=== PATIENT | male | born 1975 | race Asian ===

== ENCOUNTER 2024-02-04 19:03 | Emergency (ER) | payer OTHER ==
[~2024-02-04] VITALS: Ht 188 cm; Wt 159.0 kg
[2024-02-04 19:11] VITALS: O2SAT 98
[2024-02-04 19:52] LABS: BASOPHILS % 0.5 % (0.0-2.0); EOSINOPHILS % 0.6 % (0.0-5.0); HEMATOCRIT. 46.5 % (42.0-52.0); HEMOGLOBIN. 15.4 g/dL (14.0-18.0); LYMPHOCYTES % 8.8 % (20.0-50.0); MEAN CORPUSCULAR HEMOGLOBIN 28.6 pg (28.0-32.0); MEAN CORPUSCULAR HGB CONC 33.2 g/dL (31.0-37.0); MEAN PLATELET VOLUME 6.4 fl (7.4-10.4); MONOCYTES % 11.1 % (2.0-8.0); PLATELET 315 x1000/uL (130-400); RED BLOOD CELL COUNT 5.41 mill/uL (4.7-6.1); RED CELL DISTRIBUTION WIDTH 14.9 % (11.6-14.6); WHITE BLOOD COUNT 12.5 x1000/uL (4.5-11.0)
[2024-02-04 20:10] LABS: ALANINE AMINOTRANSFERASE 29 IU/L (10-49); ALBUMIN 4.8 g/dL (3.2-4.8); ASPARTATE AMINOTRANSFERASE 32 IU/L (<34); BILIRUBIN TOTAL 0.7 mg/dL (0.1-1.0); CALCIUM 9.2 mg/dL (8.7-10.4); CARBON DIOXIDE 27 mEq/L (21-32); CHLORIDE 103 mEq/L (98-107); CREATININE 1.4 mg/dL (0.6-1.3); GLUCOSE 85 mg/dL (70-105); POTASSIUM 4.1 mEq/L (3.5-5.1); PROTEIN TOTAL 8.8 g/dL (6.0-8.3); SODIUM 136 mEq/L (136-145); UREA NITROGEN BLOOD 15 mg/dL (9-23)
[2024-02-04 23:48] LABS: TROPONIN I HIGH SENSITIVITY < 4 ng/L (3.0-53)
[2024-02-04] MEDS: CLONIDINE 0.1MG TABLET PO ONE (23:49)
[2024-02-05 00:54] VITALS: BP 158/111; PULSE 106; RESP 18
[2024-02-05] MEDS ORDERED: AZIT250T12 MT (00:55)
[2024-02-05 01:00] VITALS: TEMP 98.5
[2024-02-05] MEDS: ACETAMINOPHEN 325MG TABLET PO ONE (01:00)
== END 2024-02-05 02:04 | disposition home or self-care (01) ==
LOC: ER 19:03
DX: J18.9 Pneumonia, unspecified organism (principal); I10 Essential (primary) hypertension; N17.9 Acute kidney failure, unspecified
CPT/HCPCS: 80053; 83880; 85025; 84484; 36415; 71045; 70450; 93005; 99285; Z7610